=== PATIENT | male | born 1995 | race Caucasian/White ===

== ENCOUNTER 2020-01-26 09:09 | Inpatient (IN) | payer BC ==
[~2020-01-26] VITALS: Ht 170.2 cm; Wt 91.2 kg
[2020-01-26 09:17] VITALS: Ht 170.2 cm; Wt 91.2 kg
[2020-01-26 10:18] LABS: BASOPHIL % 0.4 % (0-2); PLATELET COUNT 248 x10^3mcL (130-400); RED CELL DISTRIBUTION WIDTH 12.7 % (11.5-14.5)
[2020-01-26 10:36] LABS: ALBUMIN 3.9 g/dL (3.4-5.0); ALKALINE PHOSPHATASE 100 U/L (46-116); ALT/SGPT 43 U/L (16-63); AST/SGOT 24 U/L (15-37); BILIRUBIN TOTAL 0.55 mg/dL (0.20-1.00); CALCIUM 9.5 mg/dL (8.5-10.1); CARBON DIOXIDE 28.1 mmol/L (21-32); CHLORIDE SERUM 99 mmol/L (98-107); GFR1 > 60 mL/min; GLUCOSE SERUM 103 mg/dL (74-106); LIPASE 89 IU/L (73-393); SODIUM SERUM 134 mmol/L (136-145)
[2020-01-26 10:42] LABS: TOTAL PROTEIN, SERUM 8.5 g/dL (6.4-8.2)
[2020-01-26 11:08] LABS: microscopic required? NO
[2020-01-26 11:18] LABS: urine erythrocyte NEGATIVE (NEGATIVE)
[2020-01-26 15:26] VITALS: BP 128/68
[2020-01-26 20:29] VITALS: BP 118/62
[2020-01-27 05:42] VITALS: BP 114/64
[2020-01-27 06:36] LABS: ALBUMIN 3.4 g/dL (3.4-5.0); ALKALINE PHOSPHATASE 88 U/L (46-116); ALT/SGPT 41 U/L (16-63); AST/SGOT 26 U/L (15-37); BILIRUBIN TOTAL 0.73 mg/dL (0.20-1.00); CALCIUM 9.4 mg/dL (8.5-10.1); CHLORIDE SERUM 100 mmol/L (98-107); GFR1 > 60 mL/min; GLUCOSE SERUM 110 mg/dL (74-106); MAGNESIUM 2.1 mg/dL (1.8-2.4); POTASSIUM SERUM 4.6 mmol/L (3.5-5.1); SODIUM SERUM 133 mmol/L (136-145)
[2020-01-27 06:37] LABS: BASOPHIL % 0 % (0-2); PLATELET COUNT 274 x10^3mcL (130-400); RED CELL DISTRIBUTION WIDTH 12.6 % (11.5-14.5)
[2020-01-27 08:06] VITALS: BP 128/68
[2020-01-27] MEDS ORDERED: CIPRO500 MG PO (11:18)
[2020-01-27 12:04] VITALS: BP 127/67
[2020-01-27 12:58] VITALS: BP 127/67
== END 2020-01-27 16:34 | disposition home or self-care (01) | DRG 349 ==
LOC: ED 09:09 → MU 12:34 → DU 12:34
PROVIDERS: Emergency Medicine; ADMIT Hospitalist; ATTEND Family Medicine Addiction Medicine
PROC: 0D9Q0ZZ Drainage of Anus, Open Approach (ICD-10-PCS; 2020-01-26)
PROC: 0DJD8ZZ Inspection of Lower Intestinal Tract, Via Natural or Artificial Opening Endoscopic (ICD-10-PCS; principal; 2020-01-26 17:00)
DX: K61.0 Anal abscess (principal); K62.89 Other specified diseases of anus and rectum; D72.829 Elevated white blood cell count, unspecified; Z20.828 Contact with and (suspected) exposure to other viral communicable diseases
CPT/HCPCS: 90658; G0378; J0690; J1650; J2270; J2543; J3010; J3490; J7030; Q0092; Q9967